=== PATIENT | male | born 1990 | race Caucasian/White ===

== ENCOUNTER 2024-06-24 10:18 | Outpatient (CLI) | payer OTHER, SELFPAY | END 2024-06-24 10:19 | disposition home or self-care (01) | PROVIDERS: PCP Family Medicine; Visit Provider Family Medicine | DX: E03.9 Hypothyroidism, unspecified (principal); R25.2 Cramp and spasm; Z13.220 Encounter for screening for lipoid disorders | CPT/HCPCS: 80048; 80061; 84439; 84443; 85025 ==

== ENCOUNTER 2024-08-20 11:33 | Outpatient (CLI) | payer OTHER, SELFPAY | END 2024-08-20 11:34 | disposition home or self-care (01) | LOC: FBOREF 11:34 | PROVIDERS: PCP Family Medicine; Visit Provider Family Medicine | DX: E03.9 Hypothyroidism, unspecified (principal) | CPT/HCPCS: 84439; 84443 ==

== ENCOUNTER 2025-05-12 16:26 | Outpatient (CLI) | payer OTHER, SELFPAY ==
[2025-05-13 00:04] LABS: Chlamydia DNA Amplified* NOT DETECTED (No Detected); GC DNA Amplified* NOT DETECTED (No Detected)
== END 2025-05-12 16:27 | disposition home or self-care (01) ==
PROVIDERS: PCP Family Medicine; Visit Provider Family Medicine
DX: Z11.3 Encounter for screening for infections with a predominantly sexual mode of transmission (principal); E03.9 Hypothyroidism, unspecified
CPT/HCPCS: 84443; 86703; 86780; 87491; 87591